=== PATIENT | female | born 1975 | race Caucasian/White ===

== ENCOUNTER → 2017-12-10 | Outpatient (CLI) | payer OTHER ==
[~2017-12-10] MED LIST: ACE500 PO; IBU800 PO; IBUP-1618 PO; PREN-67 PO
--- NOTE | 2017-12-13 08:31 | RADIOLOGY IMAGING REPORT ---
FACILITY: [facility] - [place] PATIENT NAME: DIAMODN CHRISTOPHER : [id number] MR: [id number] V: [id number] EXAM DATE: [id number] ORDERING PHYSICIAN: ИРИНА MARTIN TECHNOLOGIST: Maria Dolores Hirsch PROCEDURE:BILATERAL DIGITAL SCREENING MAMMOGRAM WITH CAD ASSISTED INTERPRETATION & 3D TOMOSYNTHESIS COMPARISON:Baseline study. INDICATIONS:SCREENING FINDINGS: The breasts have scattered fibroglandular parenchymal densities. There is an indistinct asymmetry in the central Right breast at middle depth. Left breast is mammographically unremarkable. DIAGNOSTIC CATEGORY 0--INCOMPLETE: NEED ADDITIONAL IMAGING EVALUATION. RECOMMENDATIONS: ADDITIONAL MAMMOGRAPHIC VIEWS REQUIRED: RIGHT BREAST. Right breast diagnostic mammogram. Spot compression CC & MLO views as well as a true MLO view. ULTRASOUND: RIGHT BREAST. Ultrasound of the Right breast if indicated by additional views. IMPRESSION: BIRADS 0: Incomplete, need additional imaging. Dictated by: Driss Sesay on 12/10/2017 at 12:18 Transcribed by: ADRIANA on 12/10/2017 at 13:09 Approved by: Hi Cobian M.D. on 12/13/2017 at 8:30 [facility]
== END ==
LOC: MAMO 08:41
PROVIDERS: ATTEND Obstetrics & Gynecology
DX: R92.2 Inconclusive mammogram (principal); Z80.3 Family history of malignant neoplasm of breast
CPT/HCPCS: 77063; 77067

== ENCOUNTER → 2018-01-04 | Outpatient (CLI) | payer OTHER ==
--- NOTE | 2018-01-04 17:28 | RADIOLOGY IMAGING REPORT ---
FACILITY: [facility] - [place] PATIENT NAME: DIAMOND CHRISTOPHER : [id number] MR: [id number] V: [id number] EXAM DATE: [id number] ORDERING PHYSICIAN: ИРИНА MARTIN TECHNOLOGIST: Maria Dolores Hirsch PROCEDURE:RIGHT DIGITAL DIAGNOSTIC MAMMOGRAM WITH CAD ASSISTED INTERPRETATION & 3D TOMOSYNTHESIS COMPARISON:Prior mammograms 12/10/17. INDICATIONS:further evaluation FINDINGS: The patient returns for Spot compression views in the Right CC and MLO projections with 3D Tomosynthesis in addition to a Mediolateral view of the Right breast. The focal area of increased density in the deep central Right breast appears freely compressible and apparently represents summation shadow. There is no demonstration of malignant appearing mass or calcifications in the Right breast. DIAGNOSTIC CATEGORY 1--NEGATIVE. RECOMMENDATIONS: ROUTINE MAMMOGRAM AND CLINICAL EVALUATION. IMPRESSION: BIRADS 1: Negative. No significant abnormality of the Right breast is seen. Dictated by: Henrietta Shirley M.D. on 01/04/2018 at 14:47 Transcribed by: KEEGAN on 01/04/2018 at 14:56 Approved by: Henrietta Shirley M.D. on 01/04/2018 at 17:27 [facility]
== END ==
LOC: MAMO 01:21
PROVIDERS: ATTEND Obstetrics & Gynecology
DX: R92.8 Other abnormal and inconclusive findings on diagnostic imaging of breast (principal)
CPT/HCPCS: 77061; 77065